=== PATIENT | male | born 1960 | race African-American/Black ===

== ENCOUNTER 2021-09-13 21:55 | Inpatient (IN) | payer OTHER ==
[~2021-09-13] VITALS: Ht 172.7 cm; Wt 59.0 kg
--- NOTE | ~2021-09-13 | EMS ---
[address] [address] EMS Patient Care Report Name: GREG ENGLISH Room #: [id number] Admission: 09/13/21 Attend Phys: Discharge: Date of : 56 Report #: [id number] THIS REPORT FOR: //name// Report Transmitted: 09/13/2021 22:00 EMS Care Summary [place], [place]/[facility] Incident [id number] @ 09/13/2021 21:27 Incident Location [address] [place] [address] [address] Patient GREG ENGLISH Male, 61 Years 1960 Patient Address Patient History Diabetes, Patient Allergies No known allergies, Patient Medications Insulin, Chief Complaint SYNCOPE Disposition Transported No Lights/Sandy Dispatch Reason Unconscious/Fainting Transported To [facility] Narrative RESPONDED TO UNCONSCIOUS AT APARTMENT. UPON ARRIVAL PT FOUND SITTING UPRIGHT IN CHAIR ALERT AND ORIENTED. EMS WITNESSED PT HAVE SYNCOPAL EPISODE FOR SEVERAL SECONDS AND THEN COME TO BASELINE. PT PRESENTS DIAPHORETIC AND THEN VOMITS. PT VITALS AND 3LEAD OBTAINED. PT GIVEN IV FLUIDS FOR HYPOTENSION. FAMILY REPORTS PT HAS HX OF SYNCOPAL EPISODES WHEN HIS BLOOD SUGAR GETS TOO HIGH. PT WAS CARRIED TO COT AND SEATBELTS APPLIED. PT TRANSPORTED TO [facility] DESPITE BEING [facility] [address] [place] [address] EMS Patient Care Report Name: GREG ENGLISH Room #: REG Christie#: [id number] Admission: 09/13/21 Attend Phys: Discharge: Date of : 56 Report #: [id number] HIGH VOLUME . PT TRANSPORTED WITH 2 FF RIDERS AND UPON ARRIVAL TO HOSPITAL 12 LEAD OBTAINED. PT TEAM LIFTED TO BED AND HANDRAILS UP. REPORT GIVEN TO NURSE. Initial Vitals @21:49P: 67,SpO2: 100,MN Suspected: true @21:39P: 83,R: 18,BP: 64/50,Pain: 0/10,GCS: 15,SpO2: 89,Revised Trauma: 10, @21:49P: 66,R: 18,BP: 100/69,SpO2: 98, Assessments @21:38MENTAL:Person Oriented,Place Oriented,Time Oriented,Event Oriented,SKIN:Diaphoresis,HEENT:Head/Face: No Abnormalities,Eyes: No Abnormalities,Neck/Airway: No Abnormalities,LUNG SOUNDS:General: Nausea,General: Vomiting,Left Upper: No Abnormalities,Right Upper: No Abnormalities,Left Lower: No Abnormalities,Right Lower: No Abnormalities,ABDOMEN:General: Nausea,General: Vomiting,Left Upper: No Abnormalities,Right Upper: No Abnormalities,Left Lower: No Abnormalities,Right Lower: No Abnormalities,PELVIS//GI:No Abnormalities,EXTREMITIES:Left Leg: Weakness,Left Arm: Weakness,Right Arm: Weakness,Right Leg: Weakness,PULSE:Radial: 1+ Thready,NEURO:No Abnormalities,@21:44MENTAL:Event Oriented,Person Oriented,Time Oriented,Place Oriented,SKIN:Diaphoresis,HEENT:Head/Face: No Abnormalities,Eyes: No Abnormalities,Neck/Airway: No Abnormalities,LUNG SOUNDS:General: No Abnormalities,Left Upper: No Abnormalities,Right Upper: No Abnormalities,Left Lower: No Abnormalities,Right Lower: No Abnormalities,ABDOMEN:General: No Abnormalities,Left Upper: No Abnormalities,Right Upper: No Abnormalities,Left Lower: No Abnormalities,Right Lower: No Abnormalities,PELVIS//GI:No Abnormalities,EXTREMITIES:Left Leg: Weakness,Right Leg: Weakness,Right Arm: Weakness,Left Arm: Weakness,PULSE:NEURO: Impression Syncope / Fainting Procedures @21:40 IV Therapy - Saline Lock 5cc (18 ga) Site: Antecubital-Left Response: UnchangedSucceeded @21:38 ALS Assessment Response: UnchangedSucceeded @21:45 3-Lead ECG Response: UnchangedSucceeded @21:41 IV Bolus - Normal Saline (.9% NaCl) 300cc (18 ga) Site: Antecubital-Left Response: ImprovedSucceeded @21:49 12-Lead ECG Response: UnchangedSucceeded Timeline 21:26,Call Received 21:26,Dispatch Notified 21:27,[place] [address] EMS Patient Care Report Name: GREG ENGLISH Room #: YESSENIA Soriano#: [id number] Admission: 09/13/21 Attend Phys: Discharge: Date of : 56 Report #: [id number] 21:28,En Route 21:35,On Scene 21:38,At Patient 21:38,ALS Assessment,Response: UnchangedSucceeded, 21:39,BP: 64/50 M,PULSE: 83,RR: 18 R,SPO2: 89 Ox,ETCO2: ,BG: ,PAIN: 0,GCS: 15, 21:40,IV Therapy - Saline Lock 5cc 18 ga Site: Antecubital-Left,Response: UnchangedSucceeded, 21:41,IV Bolus - Normal Saline (.9% NaCl) 300cc 18 ga Site: Antecubital-Left,Response: ImprovedSucceeded, 21:45,3-Lead ECG,Response: UnchangedSucceeded, 21:48,Depart Scene 21:49,12-Lead ECG,Response: UnchangedSucceeded, 21:49,BP: / M,PULSE: 67,RR: R,SPO2: 100 Ox,ETCO2: ,BG: ,PAIN: ,GCS: , 21:49,BP: 100/69 M,PULSE: 66,RR: 18 R,SPO2: 98 Ox,ETCO2: ,BG: ,PAIN: ,GCS: , 21:53,At Destination 22:07,Call Closed Disclaimer v1.1 Copyright 2020 [employer] This EMS Care Summary contains data elements from the applicable legal record (which may be displayed differently). It is designed to provide pertinent information for the following purposes: continuity of care, clinical quality, and state data reporting. The complete legal record is available to ED staff and administrators of the receiving hospital in [facility]'s Patient Tracker. All data is provided "as is."
[2021-09-13 22:00] VITALS: BP 102/74
[2021-09-13 22:50] LABS: ABSOLUTE NEUTROPHILS 7.2 thou/uL (1.4-8.2); BASOPHILS 0.5 % (0.0-2.0); EOSINOPHILS 2.4 % (0.0-3.0); LYMPHOCYTES 19.7 % (24.0-44.0); MCH 29.1 pg (26.0-34.0); MCHC 33.3 g/dL (28.0-37.0); MCV 87.2 fL (80.0-100.0); MONOCYTES 8.7 % (1.0-8.0); PLATELET COUNT 134 thou/uL (150-400); POLYS 68.7 % (36.0-66.0); RBC 4.13 mil/uL (4.50-6.00); RDW 14.6 % (10.5-14.5); WBC 10.5 thou/uL (4.0-11.0)
[2021-09-13 23:16] LABS: ALBUMIN 3.8 g/dL (3.4-5.0); CALCIUM 8.5 mg/dL (8.5-10.1); CREATININE 2.1 mg/dL (0.7-1.3); POTASSIUM 5.1 mmol/L (3.5-5.1); TOTAL BILIRUBIN 0.5 mg/dL (0.2-1.0); TOTAL PROTEIN 7.2 g/dL (6.4-8.2)
[2021-09-14] MEDS ORDERED: CARVEDILOL25 MG PO (02:42)
[2021-09-14] MEDS ORDERED: PROZAC20 M1 PO (02:42)
[2021-09-14] MEDS ORDERED: LEVEMIR100 UNIT/1 SUBQ (02:42)
[2021-09-14] MEDS ORDERED: ZESTRIL40 MG PO (02:42)
[2021-09-14] MEDS ORDERED: LYRICA150 MG PO (02:43)
[2021-09-14] MEDS ORDERED: ASA81BEC PO (02:43)
[2021-09-14] MEDS ORDERED: NORVASC10 MG PO (02:43)
[2021-09-14] MEDS ORDERED: JARDIANCE25 MG PO (02:43)
[2021-09-14] MEDS ORDERED: VITAMIN D325 MC2 PO (02:44)
[2021-09-14] MEDS ORDERED: ARTHRITIS PAIN100 GM TOP (02:44)
[2021-09-14] MEDS ORDERED: CRESTOR40 MG PO (02:45)
[2021-09-14 07:32] LABS: CALCIUM 8.5 mg/dL (8.5-10.1); CREATININE 1.8 mg/dL (0.7-1.3); POTASSIUM 4.3 mmol/L (3.5-5.1)
[2021-09-14 07:39] LABS: CHOLESTEROL 108 mg/dL (<200); HDL CHOLESTEROL 36 mg/dL (>40); LDL CHOLESTEROL 43 mg/dL (<100); TRIGLYCERIDE 147 mg/dL (<150); VLDL 29 mg/dL (<40)
--- NOTE | 2021-09-14 12:36 | EKG ---
[place] [address] [facility] 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1960 Requested By: Matt Bal Order Number: [id number] MD: Remy Hanna Measurements Intervals [place] Rate: 75 P: 80 [place]: 209 QRS: 17 QRSD: 84 T: 64 QT: 386 QTc: 432 Interpretive Statements Sinus rhythm ST elevation, anterolateral leads, probably early repolarization No previous ECG available for comparison Electronically Signed On 09-14-2021 12:36:08 SLITTER CREASER SLOTTER OPERATOR by Remy Hanna [email or web address] <ELECTRONICALLY SIGNED> By: Remy Hanna MD, [facility] 09/14/21 1236 2357 2350 Remy Hanna MD, FAC /EPI
[2021-09-14 13:00] VITALS: BP 138/92
[2021-09-14 16:41] VITALS: BP 140/85
[2021-09-14 17:00] VITALS: BP 151/70
--- NOTE | 2021-09-14 19:30 | NUR ---
ADMISSION NOTE: PT ADMITTED INTO ROOM 209, ALERT AND ORIENTED X4, DENIES CHEST PAIN. PT STATES HE HAS SOME TINGLING IN HIS FIGURES, ITS CHRONIC. 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 CONSENTS SIGNED BY PT. ASSESSMENT AND ADMISSION COMPLETED. SKIN INTACT. IVF RUNNING. FALL PRECAUTIONS IN PLACE. DENIES ANY NEEDS MAGGI, REPORT GIVEN TO HEAD PORTER BAGGAGE NURSE.
[2021-09-14 20:33] VITALS: BP 132/76
[2021-09-15 04:41] VITALS: BP 121/78
[2021-09-15 07:25] VITALS: BP 132/84
[2021-09-15 08:25] LABS: ABSOLUTE NEUTROPHILS 9.4 thou/uL (1.4-8.2); BASOPHILS 0.3 % (0.0-2.0); EOSINOPHILS 1.7 % (0.0-3.0); HEMATOCRIT 36.9 % (42.0-52.0); HEMOGLOBIN 12.3 gm/dL (14.0-18.0); LYMPHOCYTES 10.6 % (24.0-44.0); MCH 28.9 pg (26.0-34.0); MCHC 33.3 g/dL (28.0-37.0); MCV 86.5 fL (80.0-100.0); PLATELET COUNT 110 thou/uL (150-400); POLYS 78.4 % (36.0-66.0); RBC 4.26 mil/uL (4.50-6.00); RDW 14.5 % (10.5-14.5)
[2021-09-15 08:33] LABS: CALCIUM 8.5 mg/dL (8.5-10.1); CREATININE 1.5 mg/dL (0.7-1.3); POTASSIUM 3.9 mmol/L (3.5-5.1)
[2021-09-15 11:30] VITALS: BP 153/95
--- NOTE | 2021-09-15 12:22 | 2DMMODE ---
[facility] [place] [address] 2 D/M-MODE ECHOCARDIOGRAM Name: GREG ENGLISH Room #: 209-P ADM IN .R.#: [id number] Admission: 09/13/21 Attend Phys: Juliocesar Ray MD Discharge: Date of : 56 Report #: [id number] THIS REPORT FOR: cc: Krystin Pierce MD, Karla L. MD Lundgren, Craig H. MD [facility] ~ APPROVED REPORT Study performed: 09/15/2021 10:33:32 EXAM: Comprehensive 2D, Doppler, and color-flow Echocardiogram Patient Location: Bedside Room #: 209 Status: routine BSA: 1.68 HR: 80 bpm BP: 132/84 mmHg Rhythm: NSR Other Information Study Quality: Good Indications Diabetes Syncope Hypertension/HDD 2D Dimensions RVDd: 29.57 mm IVSd: 9.78 (7-11mm) LVOT Diam: 19.66 (18-24mm) LVDd: 48.32 mm PWd: 10.53 (7-11mm) Ascending Ao: 30.58 (22-36mm) LVDs: 30.60 (25-40mm) Left Atrium: 32.52 (27-40mm) Aortic Root: 31.65 mm IVC: 1322.00 mm Volumes Left Atrial Volume (Systole) Single Plane 4CH: 30.97 mL Single Plane 2CH: 27.96 mL Aortic Valve AoV Peak Hung.: 1.27 m/s AO Peak Gr.: 6.44 mmHg LVOT Max P.02 mmHg LVOT Max V: 1.00 m/s [facility] [address] [place] [address] 2 D/M-MODE ECHOCARDIOGRAM Name: GREG ENGLISH Room #: 209-P [facility] IN [facility]#: [id number] Admission: 09/13/21 Attend Phys: Juliocesar Ray MD Discharge: Date of : 56 Report #: [id number] Vmax: 2.40 cm2 Mitral Valve E/A Ratio: 0.7 MV Decel. Time: 256.92 ms MV E Max Hung.: 0.52 m/s MV A Hung.: 0.73 m/s MV PHT: 74.51 ms IVRT: 124.57 ms Pulmonary Valve PV Peak Hung.: 0.76 m/s PV Peak Gr.: 2.30 mmHg Pulmonary Vein P Vein S: 0.64 m/s P Vein A: 0.28 m/s P Vein D: 0.32 m/s P Vein A Dur.: 92.3 msec P Vein S/D Ratio: 2.00 Tricuspid Valve TR Peak Hung.: 2.26 m/s TR Peak Gr.: 20.39 mmHg PA Pressure: 25.00 mmHg Left Ventricle The left ventricle is normal size. There is normal LV segmental wall motion. There is normal left ventricular wall thickness. The left ventricular systolic function is normal. The left ventricular ejection fraction is within the normal range. LVEF is 55-60%. Mild diastolic dysfunction Right Ventricle The right ventricle is normal size. The right ventricular systolic function is normal. Atria The left atrium size is normal. The right atrium size is normal. Aortic Valve The aortic valve is mildly calcified. Mild aortic regurgitation. There is no aortic valvular stenosis. Mitral Valve The mitral valve is normal in structure. Trace to mild mitral regurgitation. No evidence of mitral valve stenosis. [facility] [address] [place] [address] 2 D/M-MODE ECHOCARDIOGRAM Name: GREG ENGLISH Room #: 209-P ADM IN .R.#: [id number] Admission: 09/13/21 Attend Phys: Juliocesar Ray MD Discharge: Date of : 56 Report #: [id number] Tricuspid Valve The tricuspid valve is normal in structure. There is trace to mild tricuspid regurgitation. Estimated PAP 25 mmHg. There is no pulmonary hypertension. Pulmonic Valve The pulmonary valve is normal in structure. There is no pulmonic valvular regurgitation. Great Vessels The aortic root is normal in size. IVC is normal in size and collapses >50% with inspiration. Pericardium There is no pericardial effusion. <Conclusion> The left ventricular systolic function is normal. There is normal LV segmental wall motion. LVEF is 55-60%. Mild diastolic dysfunction The aortic valve is mildly calcified. Mild aortic regurgitation, no stenosis. The mitral valve is normal in structure. Trace to mild mitral regurgitation. There is trace to mild tricuspid regurgitation. Estimated pulmonary artery pressure of 25 mmHg. There is no pericardial effusion. <ELECTRONICALLY SIGNED> By: Remy Hanna MD, FACC 09/15/21 122 122 20 Remy Hanna MD, FACC /INF
[2021-09-15] MEDS ORDERED: COREG6.25 MG PO (13:11)
[2021-09-15] MEDS ORDERED: LISINOPRIL10 MG PO (13:12)
[2021-09-15 14:29] VITALS: BP 150/80
[2021-09-15 15:20] VITALS: BP 151/93
--- NOTE | 2021-09-15 16:07 | NUR ---
67 Y.O M, ADM FOR SYNCOPE PT A0X4, AMBULATING IN THE ROOM W/ MINIMAL ASSISTANCE. D/C FROM TELE MONITOR AND IV D/C. PT DRESSED AND AT BEDSIDE. WHEELCHAIR OFF THE FLOOR.
[2021-09-16 01:06] LABS: GLYCOHEMOGLOBIN (HGB A1C) 13.8 % (4.8-5.6)
== END 2021-09-15 17:16 | disposition home or self-care (01) | DRG 640 ==
LOC: ER 21:55 → 2N 23:52 → EROBS 23:52 → 2N 09-14 16:42
PROVIDERS: Emergency Medicine; Nurse Practitioner Family; ADMIT Hospitalist; ATTEND Hospitalist
DX: E86.0 Dehydration (principal); N17.0 Acute kidney failure with tubular necrosis; I95.89 Other hypotension; Z20.822 Contact with and (suspected) exposure to COVID-19; E11.65 Type 2 diabetes mellitus with hyperglycemia; I10 Essential (primary) hypertension; E11.42 Type 2 diabetes mellitus with diabetic polyneuropathy; E78.5 Hyperlipidemia, unspecified; Z79.899 Other long term (current) drug therapy
CPT/HCPCS: 10081

== ENCOUNTER 2021-11-27 09:49 | Inpatient (IN) | payer OTHER ==
[~2021-11-27] VITALS: Ht 172.7 cm; Wt 62.1 kg
--- NOTE | ~2021-11-27 | EMS ---
[address] [address] EMS Patient Care Report Name: GREG ENGLISH Room #: 433-I [facility] IN M.R.#: [id number] Admission: 11/27/21 Attend Phys: Walter Kraus Discharge: 11/29/21 Date of : 56 Report #: [id number] THIS REPORT FOR: //name// Report Transmitted: 12/01/2021 14:26 EMS Care Summary [place], [place]/[facility] Incident [id number] @ 11/27/2021 09:05 Incident Location [id number] [place] [address] Patient GREG ENGLISH Male, 61 Years 1960 Patient Address [id number] [place] [address] Patient History Diabetes,Hypertension (HTN),Neuropathy, Patient Allergies No known allergies, Patient Medications Amlodipine, Cyanocobalamin Co57, Fluoxetine, Insulin, Chief Complaint VOMITING Disposition Transported No Lights/Flushing Dispatch Reason Sick Person Transported To [facility] Narrative PT IS A 61 YR OLD MALE THAT C/O SUDDEN ONSET OF NAUSEA AND VOMITING AROUND 7 AM THIS MORNING. PT STATES THAT PT IS OUT OF HIS LYRICA MEDICATION AND HAS NOT BEEN ABLE TO TAKE IT FOR FOUR DAYS. STATES THAT THE LAST TIME PT WAS [facility] [address] [place] [address] EMS Patient Care Report Name: GREG ENGLISH Room #: 433-I DIS IN [facility]#: [id number] Admission: 11/27/21 Attend Phys: Walter Schreiber Nayana Discharge: 11/29/21 Date of : 56 Report #: [id number] OUT OF THIS MEDICATION, PT HAD SIMIALR SYMPTOMS AND ISSUES. PT DENIES BEING AROUND ANYONE SICK. EMS ARRIVED ON SCENE TO FIND PT CURLED UP IN A CHAIR ALERT AND ORIENTED X 3, NO RESPIRATORY DISTRESS, PT WAS SLIGHTLY CLAMMY WITH EXERTION OF VOMITING. PT DENIES ANY DIZZINESS, CHEST PAIN OR SOB. V/S ASSESSED. PT WAS ABLE TO STAND AND SIT ON STRETCHER AND MOVED TO AMBULANCE W/O INCIDENT. V/S REASSESSED, IV ESTABLISHED AND BLOOD GLUCOSE OBTAINED. 4 MG ZOFRAN ADMINISTERED. PT TRANSPORTED TO [facility] [place], PT HAD NO RELIEF WITH ZOFRAN. NO CHANGES OCCURRED EN ROUTE. PT MOVED TO ER VIA STRETCHER, PT STOOD AND SEATED ON ER BED. REPORT GIVEN AND PT CARE TRANSFERRED TO RN. Initial Vitals @09:36P: 75,BP: 156/103,SpO2: 94, @09:31BP: 183/115,SpO2: 49, @09:27P: 99,SpO2: 89, @09:34P: 80,SpO2: 78, @09:32P: 75,SpO2: 71, @09:30P: 61,SpO2: 50, @09:17P: 99,R: 24,BP: 169/69,Pain: 0/10,GCS: 15,Glucose: 263,Revised Trauma: 12, Assessments @09:20MENTAL:Place Oriented,Person Oriented,Time Oriented,Event Oriented,SKIN:Other,HEENT:Head/Face: No Abnormalities,Eyes: No Abnormalities,Neck/Airway: No Abnormalities,LUNG SOUNDS:General: Vomiting,General: Nausea,General: Diarrhea,Left Upper: No Abnormalities,Right Upper: No Abnormalities,Left Lower: No Abnormalities,Right Lower: No Abnormalities,ABDOMEN:General: Vomiting,General: Nausea,General: Diarrhea,Left Upper: No Abnormalities,Right Upper: No Abnormalities,Left Lower: No Abnormalities,Right Lower: No Abnormalities,PELVIS//GI:No Abnormalities,EXTREMITIES:Left Arm: No Abnormalities,Right Arm: No Abnormalities,Left Leg: No Abnormalities,Right Leg: No Abnormalities,PULSE:NEURO:No Abnormalities,@09:40MENTAL:Event Oriented,Time Oriented,Person Oriented,Place Oriented,SKIN:No Abnormalities,HEENT:LUNG SOUNDS:General: Vomiting,ABDOMEN:General: Vomiting,PELVIS//GI:No Abnormalities,EXTREMITIES:Left Arm: No Abnormalities,Right Arm: No Abnormalities,Left Leg: No Abnormalities,Right Leg: No Abnormalities,PULSE:NEURO:No Abnormalities, Impression Vomiting Procedures @09:17 ALS Assessment Response: UnchangedSucceeded @09:29 Stretcher Response: Unchanged @09:32 IV Therapy - Saline Lock 10cc (20 ga) Site: Antecubital-Left Response: UnchangedSucceeded @09:35 Zofran - 4 Milligrams (mg) - Intravenous (IV) Response: Unchanged [address] [address] EMS Patient Care Report Name: GREG ENGLISH Room #: 433-I [facility] IN [facility]#: [id number] Admission: 11/27/21 Attend Phys: Walter Kraus Discharge: 11/29/21 Date of : 56 Report #: [id number] Timeline 09:03,Call Received 09:03,Dispatch Notified 09:05,Dispatched 09:05,En Route 09:13,On Scene 09:17,At Patient 09:17,ALS Assessment,Response: UnchangedSucceeded, 09:17,BP: 169/69 M,PULSE: 99,RR: 24 R,SPO2: Ox,ETCO2: ,B,PAIN: 0,GCS: 15, 09:27,BP: / M,PULSE: 99,RR: R,SPO2: 89 Ox,ETCO2: ,BG: ,PAIN: ,GCS: , 09:29,Stretcher,Response: Unchanged 09:30,BP: / M,PULSE: 61,RR: R,SPO2: 50 Ox,ETCO2: ,BG: ,PAIN: ,GCS: , 09:31,BP: 183/115 M,PULSE: ,RR: R,SPO2: 49 Ox,ETCO2: ,BG: ,PAIN: ,GCS: , 09:32,IV Therapy - Saline Lock 10cc 20 ga Site: Antecubital-Left,Response: UnchangedSucceeded, 09:32,BP: / M,PULSE: 75,RR: R,SPO2: 71 Ox,ETCO2: ,BG: ,PAIN: ,GCS: , 09:34,BP: / M,PULSE: 80,RR: R,SPO2: 78 Ox,ETCO2: ,BG: ,PAIN: ,GCS: , 09:35,Zofran - 4 Milligrams (mg) - Intravenous (IV),Response: Unchanged 09:36,BP: 156/103 M,PULSE: 75,RR: R,SPO2: 94 Ox,ETCO2: ,BG: ,PAIN: ,GCS: , 09:38,Depart Scene 09:44,At Destination 10:16,Call Closed Disclaimer v1.1 Copyright 2021 [employer] This EMS Care Summary contains data elements from the applicable legal record (which may be displayed differently). It is designed to provide pertinent information for the following purposes: continuity of care, clinical quality, and state data reporting. The complete legal record is available to ED staff and administrators of the receiving hospital in [facility]'s Patient Tracker. All data is provided "as is."
[~2021-11-27 09:49] MED LIST: ARTHRITIS PAIN100 GM TOP; ASA81BEC PO; CARVEDILOL25 MG PO; COREG6.25 MG PO; CRESTOR40 MG PO; JARDIANCE25 MG PO; LEVEMIR100 UNIT/1 SUBQ; LISINOPRIL10 MG PO; LYRICA150 MG PO; NORVASC10 MG PO; PROZAC20 M1 PO; VITAMIN D325 MC2 PO; ZESTRIL40 MG PO
[2021-11-27 09:50] VITALS: BP 157/101
[2021-11-27 10:18] LABS: ABSOLUTE NEUTROPHILS 15.7 thou/uL (1.4-8.2); BASOPHILS 0.4 % (0.0-2.0); EOSINOPHILS 0.9 % (0.0-3.0); HEMATOCRIT 44.6 % (42.0-52.0); HEMOGLOBIN 14.6 gm/dL (14.0-18.0); LYMPHOCYTES 11.2 % (24.0-44.0); MCH 28.3 pg (26.0-34.0); MCHC 32.6 g/dL (28.0-37.0); MCV 86.7 fL (80.0-100.0); PLATELET COUNT 183 thou/uL (150-400); POLYS 84.5 % (36.0-66.0); RBC 5.15 mil/uL (4.50-6.00); RDW 15.6 % (10.5-14.5); WBC 18.6 thou/uL (4.0-11.0)
[2021-11-27 10:24] LABS: CALCIUM 10.3 mg/dL (8.5-10.1); POTASSIUM 3.9 mmol/L (3.5-5.1)
[2021-11-27 10:30] LABS: ALBUMIN 4.3 g/dL (3.4-5.0); TOTAL BILIRUBIN 0.9 mg/dL (0.2-1.0); TOTAL PROTEIN 8.1 g/dL (6.4-8.2)
--- NOTE | 2021-11-27 10:55 | NUR ---
PT TO CT SCAN. WILL OBTAIN EKG WHEN PT BACK.
--- NOTE | 2021-11-27 12:23 | EKG ---
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 : 1960 Requested By: Lucretia Santos Order Number: [id number] MD: Amanuel Watters Measurements Intervals [place] Rate: 84 P: 69 SC: 155 QRS: 4 QRSD: 86 T: 59 QT: 409 QTc: 484 Interpretive Statements Sinus rhythm Probable left atrial enlargement Borderline prolonged QT interval Compared to ECG 09/13/2021 23:57:05 Early repolarization no longer present ST (T wave) deviation still present Electronically Signed On 11-27-2021 12:23:01 CUPOLA MELTER HELPER by Amanuel Watters [email or web address] <ELECTRONICALLY SIGNED> By: Amanuel Watters MD, [facility] 11/27/21 1223 12 12 Amanuel Watters MD, [facility] /EPI
[2021-11-27 13:22] LABS: URINE BILIRUBIN NEGATIVE (Negative); URINE BLOOD 1+ (Negative); URINE CLARITY CLEAR; URINE COLOR YELLOW; URINE GLUCOSE-RANDOM* 3+ (Negative); URINE KETONES 1+ (Negative); URINE LEUKOCYTES-REFLEX NEGATIVE (Negative); URINE NITRITE-REFLEX NEGATIVE (Negative); URINE PROTEIN (DIPSTICK) 1+ (Negative); URINE UROBILINOGEN 0.2 E.U./dl (0.2-1.0)
[2021-11-27 13:32] LABS: BACTERIA-REFLEX 1-9 Few /HPF (None Seen); CASTS None Seen /LPF (None Seen); CRYSTALS None Seen /LPF (None Seen); SQUAMOUS 0-3 Few /LPF (0-3); URINE RBC 1-2 Rare /HPF (NONE SEEN); URINE WBC-REFLEX None Seen /HPF (0-5)
--- NOTE | 2021-11-27 13:46 | NUR ---
AT BEDSIDE IS LEAVING AND HAS GIVEN HER NUMBER FOR UPDATES. NAMITA ENGLISH [phone]
--- NOTE | 2021-11-27 14:50 | NUR ---
THIS RN SPOKE WITH LAB REGARDING PT LAB GLUCOSE RESULT BEING SUBSTANITALLY HIGHER COMPARED WITH FINGERSTICK OF 113. LAB CALLED, PT TO BE REDRAWN. DR CAMPOS NOTIFED AND STATES THAT THIS INACCURATE READING PROBABLY DUE TO BLOOD BEING PULLED FROM PICC LINE THAT HAS D5 RUNNING.
--- NOTE | 2021-11-27 16:05 | NUR ---
DR ANDRES ASENCIO, VERBAL ORDER TO DISCONTINUE INSULIN DRIP AND D5 1/2 NS AT THIS TIME AND CONTINUE IV FLUIDS NACL. AWAITING ORDERS.
[2021-11-27 17:44] VITALS: BP 156/93
[2021-11-27 18:41] VITALS: BP 150/91
[2021-11-27 19:15] VITALS: BP 183/95
--- NOTE | 2021-11-27 19:53 | NUR ---
Pt. was on the unit upon my arrival to the unit. He is resting quietly and verbalized that the pain meds given earlier were helpful. Admission assessment and history is completed. Bed alarm is on.
--- NOTE | 2021-11-28 03:05 | NUR ---
Pt. rested quietly during the night when checked on during frequent rounds. No c/o nausea or pain. Bed alarm is on.
[2021-11-28 06:43] LABS: HEMATOCRIT 34.5 % (42.0-52.0); MCH 27.8 pg (26.0-34.0); MCV 86.8 fL (80.0-100.0); RBC 3.97 mil/uL (4.50-6.00); RDW 15.1 % (10.5-14.5); WBC 19.6 thou/uL (4.0-11.0)
[2021-11-28 06:58] VITALS: BP 124/76
[2021-11-28 06:59] LABS: ALBUMIN 3.1 g/dL (3.4-5.0); CREATININE 1.8 mg/dL (0.7-1.3); PHOSPHORUS 3.9 mg/dL (2.5-4.9)
[2021-11-28 07:08] LABS: GLYCOHEMOGLOBIN (HGB A1C) 12.9 % (4.8-5.6)
--- NOTE | 2021-11-28 09:41 | NUR ---
ASSUMED PT CARE THIS AM. PT BG WAS 53 AND GIVEN APPLE AND ORANGE JUICE THIS AM. RECHECKED BG THIS AM AND IT WAS 124. NO C/O OF PAIN, NAUSEA, VOMITING AND DIARRHEA. PT IS ON CLEAR LIQUID DIET. WILL CONTINUE TO MONITOR PT. FOLLOW POC.
[2021-11-28] MEDS ORDERED: FREESTYLE LIBR1 EAC3 MISCELL (10:15)
[2021-11-28] MEDS ORDERED: FREESTYLE LIBR1 EAC2 MISCELL (10:15)
[2021-11-28 15:14] VITALS: BP 116/74
[2021-11-28 20:33] VITALS: BP 119/82
--- NOTE | 2021-11-29 03:02 | NUR ---
ASUMED PT CARE TA 1899.PT DENIED PAIN/N/V SO FAR.PT UP WITH SBA TO THE TOILET.PT CONT ON IVF ORDERED.BG MONITORED,NO COVERAGE GIVEN PER PT'S REQUEST.FREQUENT MONITORING MAINTAINED.CALL LIGHT WITHIN REACH.
[2021-11-29 07:20] VITALS: BP 156/107
[2021-11-29] MEDS ORDERED: HUMALOG100 UNIT/1 SUBQ (09:35)
[2021-11-29 10:05] VITALS: BP 156/106
--- NOTE | 2021-11-29 10:06 | NUR ---
ASSUMED CARE OF PT AT 0700. GIVEN PAIN MEDS. PT RESTING COMFORTABLY OTHERWISE. PT IS ABLE TO DISHCARGE TO SKILLED REHAB FACILITY [facility] 1300.
[2021-11-29 10:30] VITALS: BP 156/106
== END 2021-11-29 13:10 | DRG 637 ==
LOC: ER 09:49 → 4S 12:08 → EROBS 12:08 → 4S 17:55
PROVIDERS: Emergency Medicine; ADMIT Hospitalist; ATTEND Hospitalist
DX: E11.10 Type 2 diabetes mellitus with ketoacidosis without coma (principal); N17.0 Acute kidney failure with tubular necrosis; Z20.822 Contact with and (suspected) exposure to COVID-19; E11.9 Type 2 diabetes mellitus without complications; I10 Essential (primary) hypertension; E86.0 Dehydration; E11.43 Type 2 diabetes mellitus with diabetic autonomic (poly)neuropathy; K31.84 Gastroparesis; Z83.3 Family history of diabetes mellitus; Z82.49 Family history of ischemic heart disease and other diseases of the circulatory system; Z87.891 Personal history of nicotine dependence
CPT/HCPCS: 10100